=== PATIENT | male | born 1930 | race Caucasian/White ===

== ENCOUNTER → 2016-08-24 | Outpatient (CLI) | payer BC, MEDICARE ==
[~2016-08-24] MED LIST: AVODART0.5 MG PO; COREG3.125 MG PO; FLOMAX0.4 MG PO; HALFPRIN81 MG PO; LIPITOR10 MG PO; PLAVIX75 MG PO; PRINIVIL2.5 MG PO; PROTONIX40 MG PO; SYNTHROID100 MCG PO
== END | disposition short-term general hospital (02) ==
LOC: CLCARD 12:00
DX: I25.10 Atherosclerotic heart disease of native coronary artery without angina pectoris (principal); I25.5 Ischemic cardiomyopathy; E78.5 Hyperlipidemia, unspecified; I25.2 Old myocardial infarction; Z79.82 Long term (current) use of aspirin; Z79.899 Other long term (current) drug therapy